=== PATIENT | female | born 1945 | race Two or more races ===

== ENCOUNTER 2018-09-26 14:13 | Inpatient (IN) | payer OTHER ==
[~2018-09-26] VITALS: Ht 160 cm; Wt 78.9 kg
[2018-09-26] MEDS ORDERED: SYNTHROID175 MCG PO ×2 (14:45→14:46)
[2018-09-26] MEDS ORDERED: DITROPAN XL5 MG PO (14:46)
[2018-09-26] MEDS ORDERED: ZETIA10 MG PO (14:46)
[2018-09-26] MEDS ORDERED: PROAIR HFA8.5 GM IH (14:47)
[2018-09-26] MEDS ORDERED: DILTIAZEM 24HR120 MG PO (14:47)
[2018-09-26] MEDS ORDERED: SINGULAIR 10MG10 MG PO (14:48)
[2018-09-26] MEDS ORDERED: CLONAZEPAM2 MG PO (14:48)
[2018-09-26] MEDS ORDERED: CALTRATE 600+D1 EAC1 PO (14:48)
[2018-09-26] MEDS ORDERED: ZANTAC150 M3 PO (14:49)
[2018-09-26] MEDS ORDERED: OCUVITE EYE HE1 EACH PO (14:49)
[2018-09-26] MEDS ORDERED: [UNRECOGNIZED DRUG - OTHER] PO (14:50)
[2018-09-26] MEDS ORDERED: PROZAC20 MG PO (14:50)
[2018-10-09] MEDS ORDERED: XARELTO10 MG PO (06:29)
[2018-10-09] MEDS ORDERED: INTEGRA PLUS C1 EACH PO (06:29)
[2018-10-09] MEDS ORDERED: OXYC1TAB9 PO (06:29)
== END 2018-10-09 13:25 | DRG 470 ==
LOC: EDSTATUS 14:45 → ADM 14:45 → O/R 10-06 06:46 → SURH 10-06 06:46
PROVIDERS: ADMIT Orthopaedic Surgery Sports Medicine
PROC: 0SRD0J9 Replacement of Left Knee Joint with Synthetic Substitute, Cemented, Open Approach (ICD-10-PCS; principal; 2018-10-06 07:00)
DX: M17.12 Unilateral primary osteoarthritis, left knee (principal); E03.8 Other specified hypothyroidism; J45.909 Unspecified asthma, uncomplicated

== ENCOUNTER 2021-08-04 07:45 | Inpatient (IN) | payer OTHER ==
[~2021-08-04] VITALS: Ht 160 cm; Wt 76.2 kg
[~2021-08-04 07:45] MED LIST: CALTRATE 600+D1 EAC1 PO; CLONAZEPAM2 MG PO; DILTIAZEM 24HR120 MG PO; DITROPAN XL5 MG PO; INTEGRA PLUS C1 EACH PO; OCUVITE EYE HE1 EACH PO; OXYC1TAB9 PO; PROAIR HFA8.5 GM IH; PROZAC20 MG PO; SINGULAIR 10MG10 MG PO; SYNTHROID175 MCG PO; XARELTO10 MG PO; ZANTAC150 M3 PO; ZETIA10 MG PO; [UNRECOGNIZED DRUG - OTHER] PO
[2021-08-04] MEDS ORDERED: PANTOPRAZOLE SO40 M2 PO (08:47)
[2021-08-04] MEDS ORDERED: ZETIA10 MG PO (08:47)
[2021-08-04] MEDS ORDERED: HORIZANT300 MG PO (08:48)
[2021-08-04] MEDS ORDERED: CLONAZEP PO (08:48)
[2021-08-09] MEDS ORDERED: OXYC1TAB9 PO (07:52)
[2021-08-09] MEDS ORDERED: INTEGRA PLUS C1 EACH PO (07:52)
[2021-08-09] MEDS ORDERED: XARELTO10 MG PO (07:52)
[2021-08-09] MEDS ORDERED: BACTRIM DS TAB1 EACH PO (07:52)
[2021-08-10] MEDS ORDERED: BACTRIM DS TAB1 EACH PO (07:22)
[2021-08-10] MEDS ORDERED: INTEGRA PLUS C1 EACH PO (07:22)
[2021-08-10] MEDS ORDERED: PERCOCET 5-3251 EACH PO (07:22)
== END 2021-08-10 21:25 | DRG 468 ==
LOC: SURH 08-07 06:16 → O/R 08-07 06:16 → SURH 08-07 07:00
PROVIDERS: ADMIT Orthopaedic Surgery Sports Medicine; ATTEND Orthopaedic Surgery Sports Medicine
PROC: 0SRD0J9 Replacement of Left Knee Joint with Synthetic Substitute, Cemented, Open Approach (ICD-10-PCS; 2021-08-07)
PROC: 0SPD0JZ Removal of Synthetic Substitute from Left Knee Joint, Open Approach (ICD-10-PCS; principal; 2021-08-07 07:00)
DX: M17.12 Unilateral primary osteoarthritis, left knee (principal); I10 Essential (primary) hypertension; E03.8 Other specified hypothyroidism; Z20.822 Contact with and (suspected) exposure to COVID-19

== ENCOUNTER 2022-03-27 10:30 | Inpatient (IN) | payer OTHER ==
[~2022-03-27] VITALS: Ht 160 cm; Wt 77.1 kg
[~2022-03-27 10:30] MED LIST changes: +BACTRIM DS TAB1 EACH PO; +CLONAZEP PO; +HORIZANT300 MG PO; +PANTOPRAZOLE SO40 M2 PO; +PERCOCET 5-3251 EACH PO
[2022-04-04] MEDS ORDERED: BACTRIM DS TAB1 EACH PO (06:15)
[2022-04-04] MEDS ORDERED: OXYC1TAB9 PO (06:15)
[2022-04-04] MEDS ORDERED: INTEGRA PLUS C1 EACH PO (06:15)
[2022-04-04] MEDS ORDERED: XARELTO10 MG PO (06:15)
== END 2022-04-04 12:26 | DRG 470 ==
LOC: SURH 04-02 05:00 → O/R 04-02 05:00 → SURH 04-02 07:00
PROVIDERS: ADMIT Orthopaedic Surgery Sports Medicine; ATTEND Orthopaedic Surgery Sports Medicine
PROC: 0SRC0J9 Replacement of Right Knee Joint with Synthetic Substitute, Cemented, Open Approach (ICD-10-PCS; principal; 2022-04-02 07:00)
DX: M17.11 Unilateral primary osteoarthritis, right knee (principal); I10 Essential (primary) hypertension; E03.9 Hypothyroidism, unspecified; E78.5 Hyperlipidemia, unspecified; Z96.651 Presence of right artificial knee joint

== ENCOUNTER 2022-12-31 05:37 | Day surgery (SDC) | payer OTHER ==
[~2022-12-31] VITALS: Ht 160 cm; Wt 79.4 kg
[~2022-12-31 05:37] MED LIST changes: +CARDIZEM120 MG PO; +CATAFLAN PO; +MULTIVI PO; +RETASIS; +RISEDRONATE PO; +SYMBICORT 16010.2 GM IH; +ZANAFLEX2 M1 PO; +[UNRECOGNIZED DRUG - OTHER] PO
[2022-12-31] MEDS ORDERED: DUI500 PO (10:28)
[2022-12-31] MEDS ORDERED: PERCOCET 5-3251 EACH PO (10:28)
== END 2022-12-31 15:00 | disposition home or self-care (01) ==
LOC: CIR.AMB 05:37 → SURG 07:15 → EDSTATUS 07:15 → CIR.AMB 07:15
PROVIDERS: ATTEND Orthopaedic Surgery Sports Medicine
DX: M75.122 Complete rotator cuff tear or rupture of left shoulder, not specified as traumatic (principal); S43.492A Other sprain of left shoulder joint, initial encounter; I10 Essential (primary) hypertension; Z20.822 Contact with and (suspected) exposure to COVID-19